=== PATIENT | female | born 1995 | race African-American/Black ===

== ENCOUNTER 2016-12-28 18:20 | Emergency (ER) | payer SELFPAY ==
[~2016-12-28] VITALS: Ht 157.5 cm; Wt 49.0 kg
[2016-12-28 19:40] LABS: Basophils # (auto) 0 uL; Eosinophils # (auto) 0 uL; Hematocrit 43.3 % (36.0-46.0); Lymphocytes # (auto) 0.9 uL; Lymphocytes % (auto) 6.3 % (10.0-50.0); Mean Corpuscular Hemoglobin 28.8 pg (28.0-32.0); Mean Corpuscular Hgb Conc. 32.4 g/dL (32.0-36.0); Mean Corpuscular Volume 88.9 fL (80.0-100.0); Mean Platelet Volume 8.6 fL (7.4-10.4); Monocytes # (auto) 0.3 uL; Monocytes % (auto) 2.3 % (0.0-12.0); Neutrophils # (auto) 13.1 uL; Neutrophils % (auto) 91.4 % (37.0-80.0); Platelet Count (auto) 311 10^3/uL (140-450); Red Cell Distribution Width 13.1 % (11.6-16.0); White Blood Cell 14.3 10^3/uL (4.4-10.8)
[2016-12-28 19:46] LABS: Albumin 4.2 g/dL (3.4-5.0); BUN/Creatinine Ratio 14.8; Bilirubin, Total 0.6 mg/dL (0.2-1.0); Potassium 3.6 mmol/L (3.5-5.1); Total Protein 8.4 g/dL (6.4-8.2)
[2016-12-28 19:53] LABS: Urine Bilirubin Negative (Negative); Urine Color Yellow (Yellow); Urine Glucose Normal (Normal); Urine Mucus FEW (None Seen); Urine Nitrite Negative (Negative); Urine RBC 3 /hpf (0 - 4); Urine Squamous Epithelial Cell FEW /hpf (<5); Urine Urobilinogen Normal (Negative); Urine pH 6.5 (5.0-8.0)
[2016-12-28 19:55] LABS: Urine Blood 2+ /uL (Negative); Urine Ketone 2+ (Negative)
[2016-12-29] MEDS ORDERED: SODIUM CHLORIDE 0.9% 500 ML IVB ONE (03:18)
[2016-12-29] MEDS ORDERED: ONDANSETRON HCL 4 MG/2 ML VIAL IV ONE (03:30)
[2016-12-29 04:36] VITALS: BP 124/71
== END 2016-12-29 04:30 | disposition home or self-care (01) ==
LOC: ER 18:29
DX: K29.00 Acute gastritis without bleeding (principal); E86.0 Dehydration; K52.9 Noninfective gastroenteritis and colitis, unspecified; R11.2 Nausea with vomiting, unspecified
CPT/HCPCS: 36415; 74176; 80053; 81001; 81025; 83690; 85025; 96361; 96374; 99285; G0434; J2405; J7030